=== PATIENT | male | born 1980 | race Caucasian/White ===

== ENCOUNTER 2023-10-14 01:28 | Inpatient (IN) | payer OTHER ==
[2023-10-14 02:37] LABS: #Basophils 0.04 10x3/uL (0.0-0.2); %Basophils 0.3 % (0.0-1.0); %Eosinophils 1.7 % (0.0-10.0); %Lymphocytes 11.3 % (21.0-51.0); %Monocytes 4.7 % (0.0-10.0); %Neutrophils 81.7 % (42.0-75.0); Hematocrit 36.7 % (42.0-52.0); Hemoglobin 12.3 g/dL (14.0-18.0); Mean Corpuscular HGB CONC 33.5 g/dL (32.0-36.0); Mean Corpuscular Hemoglobin 29.9 pg (27.0-31.0); Mean Corpuscular Volume 89.1 fL (78.0-98.0); Mean Platelet Volume 9.7 fL (7.4-10.4); Platelet Count 176 10x3/uL (130-400); RBC Distribution Width 13.4 % (11.5-14.5); Red Blood Cell (RBC) Count 4.12 mill/uL (4.70-6.10)
[2023-10-14 02:51] LABS: INR-International Normal Ratio 1.2; Prothrombin Time 14.9 sec (12.0-14.7)
[2023-10-14 02:52] LABS: ALT (SGPT) 32 U/L (8-55); AST (SGOT) 21 U/L (5-34); Albumin 3.1 g/dL (3.5-5.0); Alkaline Phosphatase 52 U/L (40-110); Anion Gap 13 mmol/L (10-20); BUN (Urea Nitrogen) 14 mg/dL (8.9-20.6); Calc. Creatinine Clearance 0 mL/min (70-130); Calcium 8.1 mg/dL (7.8-10.44); Carbon Dioxide 17 mmol/L (22-29); Chloride 112 mmol/L (98-107); Estimated GFR 87; Globulin 3.6 g/dL (2.4-3.5); Glucose 95 mg/dL (70-105); Magnesium 1.7 mg/dL (1.6-2.6); PTT 31.9 sec (22.9-36.1); Potassium 3.6 mmol/L (3.5-5.1); Protein, Total 6.7 g/dL (6.0-8.3); Sodium 138 mmol/L (136-145)
[2023-10-14] MEDS ORDERED: Boostrix 0.5 ML (Tdap) VIAL (>/=7 yrs of age) ONE (03:09)
[2023-10-14 05:42] VITALS: BMI 30.8
[2023-10-14] MEDS ORDERED: Ondansetron PF 4 MG/2 ML Vial IVP PRN (09:15)
[2023-10-14] MEDS ORDERED: Ondansetron ODT 4 MG TAB SL PRN (09:15)
[2023-10-14] MEDS ORDERED: Vancomycin (BATCH) 2.5 GM in Premix 1 BAG IVPB SCH (10:15)
[2023-10-14] MEDS ORDERED: Albuterol 2.5 MG (3 mL) NEB NEB PRN (10:42)
[2023-10-14] MEDS: Sodium Chloride 0.9% 1,000 ML IV SCH (11:00)
[2023-10-14] MEDS: Piperacillin/Tazobactam 3.375 GM in Sodium Chloride 0.9% 100 ML IVPB SCH ×2 (11:01→15:55)
[2023-10-14] MEDS: traMADol HCl 50 MG TAB PO PRN (11:05)
[2023-10-14] MEDS: Vancomycin (BATCH) 1.5 GM in Premix 1 BAG IVPB SCH (12:10)
[2023-10-14] MEDS: Acetaminophen 325 MG TAB PO PRN (13:13)
[2023-10-14] MEDS ORDERED: Vancomycin 1 GM in Premix 1 BAG IVPB SCH (21:00)
[2023-10-15] MEDS: Vancomycin (BATCH) 1.25 GM in Premix 1 BAG IVPB SCH (00:12)
[2023-10-15 07:09] LABS: Anion Gap 11 mmol/L (10-20); BUN (Urea Nitrogen) 10 mg/dL (8.9-20.6); Calc. Creatinine Clearance 137 mL/min (70-130); Carbon Dioxide 19 mmol/L (22-29); Chloride 110 mmol/L (98-107); Potassium 3.8 mmol/L (3.5-5.1); Sodium 136 mmol/L (136-145)
[2023-10-15 07:10] LABS: Calcium 8.6 mg/dL (7.8-10.44); Estimated GFR 99; Glucose 91 mg/dL (70-105)
[2023-10-15 07:29] LABS: #Basophils Less than 0.03 10x3/uL (0.0-0.2); %Basophils 0.2 % (0.0-1.0); %Monocytes 8.7 % (0.0-10.0); %Neutrophils 71.9 % (42.0-75.0); Hematocrit 36.5 % (42.0-52.0); Hemoglobin 11.9 g/dL (14.0-18.0); Mean Corpuscular HGB CONC 32.6 g/dL (32.0-36.0); Mean Corpuscular Hemoglobin 29.1 pg (27.0-31.0); Mean Corpuscular Volume 89.2 fL (78.0-98.0); Platelet Count 205 10x3/uL (130-400); RBC Distribution Width 13.5 % (11.5-14.5); Red Blood Cell (RBC) Count 4.09 mill/uL (4.70-6.10)
[2023-10-15] MEDS: Enoxaparin 40 MG (0.4 mL) SYRINGE SC SCH (08:22)
[2023-10-15] MEDS: Sertraline 25 MG TAB PO SCH (08:25)
[2023-10-15] MEDS: Gabapentin 300 MG CAP PO SCH (08:25)
[2023-10-15] MEDS: Baclofen 10 MG TAB PO SCH (08:26)
[2023-10-15] MEDS: Vancomycin (BATCH) 1.5 GM/300 ML BAG ONE (11:26)
[2023-10-15] MEDS: Vancomycin (BATCH) 1.5 GM in Premix 1 BAG IVPB SCH (12:27)
[2023-10-16 07:58] LABS: #Basophils 0.03 10x3/uL (0.0-0.2); %Basophils 0.4 % (0.0-1.0); %Eosinophils 4.3 % (0.0-10.0); %Lymphocytes 19.4 % (21.0-51.0); %Monocytes 8.3 % (0.0-10.0); %Neutrophils 67.2 % (42.0-75.0); Hematocrit 38.7 % (42.0-52.0); Hemoglobin 12.4 g/dL (14.0-18.0); Mean Corpuscular Hemoglobin 29.3 pg (27.0-31.0); Mean Corpuscular Volume 91.5 fL (78.0-98.0); Mean Platelet Volume 9.7 fL (7.4-10.4); Platelet Count 240 10x3/uL (130-400); RBC Distribution Width 13.4 % (11.5-14.5); Red Blood Cell (RBC) Count 4.23 mill/uL (4.70-6.10)
[2023-10-16 08:23] LABS: Vancomycin, Random 14.6 ug/mL (See Comment)
[2023-10-16 10:32] LABS: Anion Gap 14 mmol/L (10-20); BUN (Urea Nitrogen) 12 mg/dL (8.9-20.6); Calc. Creatinine Clearance 141 mL/min (70-130); Calcium 8.9 mg/dL (7.8-10.44); Carbon Dioxide 20 mmol/L (22-29); Chloride 109 mmol/L (98-107); Estimated GFR 103; Glucose 91 mg/dL (70-105); Potassium 3.8 mmol/L (3.5-5.1); Sodium 139 mmol/L (136-145)
[2023-10-17 11:51] VITALS: BP 120/76; TEMP 97.7
== END 2023-10-17 12:25 | disposition home or self-care (01) | DRG 872 ==
LOC: ERS 01:28 → ERHOLD 04:25 → T4-A 09:08
PROVIDERS: ADMIT Student in an Organized Health Care Education/Training Program; ATTEND Family Medicine
DX: A41.9 Sepsis, unspecified organism (principal); L03.116 Cellulitis of left lower limb; Z79.899 Other long term (current) drug therapy; F32.A Depression, unspecified; J45.909 Unspecified asthma, uncomplicated; G89.29 Other chronic pain; M54.9 Dorsalgia, unspecified
CPT/HCPCS: 36415; 71045; 80048; 80053; 80202; 83605; 83735; 84145; 85025; 85610; 85730; 86141; 87040; 90471; 90715; J1650; J2543; J3370; J3490; J7050